=== PATIENT | male | born 1995 | race Caucasian/White ===

== ENCOUNTER 2017-03-20 09:54 | Emergency (ER) | payer SELFPAY ==
[~2017-03-20] VITALS: Ht 177.8 cm; Wt 73.0 kg
[2017-03-20] MEDS ORDERED: ONDANSETRON HCL 4MG/2ML VIAL IV STA (10:37)
[2017-03-20] MEDS ORDERED: MORPHINE SULFATE 4 MG/ML CPJ (NOT FOR IM USE) IV STA (10:37)
[2017-03-20] MEDS ORDERED: SODIUM CHLORIDE 0.9% 1,000 ML IV ONE (10:37)
[2017-03-20] MEDS ORDERED: CLONIDINE 0.2MG TABLET PO ONE (10:45)
[2017-03-20 10:58] LABS: BASOPHILS % 0.2 % (0.0-2.0); EOSINOPHILS % 0.4 % (0.0-5.0); HEMATOCRIT. 40.9 % (42.0-52.0); HEMOGLOBIN. 13.7 g/dL (14.0-18.0); LYMPHOCYTES % 13.8 % (20.0-50.0); MEAN CORPUSCULAR HEMOGLOBIN 28.5 pg (28.0-32.0); MEAN CORPUSCULAR VOLUME 85.1 fL (80.0-94.0); MEAN PLATELET VOLUME 9.5 fl (7.4-10.4); MONOCYTES % 5.5 % (2.0-8.0); NEUTROPHILS % 80.1 % (40.0-76.0); PLATELET 221 x1000/uL (130-400); RED CELL DISTRIBUTION WIDTH 13.1 % (11.6-14.6)
[2017-03-20 11:05] LABS: INR 1.1
[2017-03-20 11:06] LABS: CLARITY URINE CLEAR (CLEAR); COLOR URINE YELLOW (YELLOW); GLUCOSE URINE NEGATIVE (NEGATIVE); KETONES URINE NEGATIVE (NEGATIVE); LEUKOCYTE ESTERASE URINE NEGATIVE (NEGATIVE); NITRITE URINE NEGATIVE (NEGATIVE); OCCULT BLOOD URINE 1+ (NEGATIVE); PROTEIN URINE NEGATIVE (NEGATIVE); SPECIFIC GRAVITY URINE 1.023 (1.005-1.030)
[2017-03-20 11:22] LABS: CHLORIDE 108 mEq/L (98-107)
[2017-03-20 11:30] LABS: CARBON DIOXIDE 24 mEq/L (21-32); ETHANOL BLOOD < 10 mg/dL
[2017-03-20 11:31] LABS: CREATINE KINASE 172 IU/L (39-308); TROPONIN I < 0.02 ng/mL (0.00-0.04)
[2017-03-20 11:31] LABS: *AMPHETAMINES SCREEN URINE NEGATIVE (NEGATIVE); *BARBITURATES SCREEN URINE NEGATIVE (NEGATIVE); *BENZODIAZEPINES SCREEN URINE NEGATIVE (NEGATIVE); *COCAINE SCREEN URINE NEGATIVE (NEGATIVE); CANNABINOID URINE SCREEN PRESUMTIVE POSITIVE (NEGATIVE); METHADONE URINE SCREEN NEGATIVE (NEGATIVE); OPIATES URINE SCREEN PRESUMTIVE POSITIVE (NEGATIVE); PHENCYCLIDINE URINE SCREEN NEGATIVE (NEGATIVE)
[2017-03-20] MEDS ORDERED: KETOROLAC 30MG/ML VIAL IV ONE (12:30)
[2017-03-20 12:45] VITALS: BP 169/63
== END 2017-03-20 12:56 | disposition home or self-care (01) ==
LOC: ER 10:36
DX: R51 Headache (principal); I10 Essential (primary) hypertension; R11.2 Nausea with vomiting, unspecified; F12.10 Cannabis abuse, uncomplicated; F17.200 Nicotine dependence, unspecified, uncomplicated; G43.909 Migraine, unspecified, not intractable, without status migrainosus; Z91.14 Patient's other noncompliance with medication regimen
CPT/HCPCS: 36415; 70450; 80053; 80305; 81001; 82550; 83880; 84443; 84484; 85025; 85610; 85651; 93005; 96361; 96374; 96375; 99285; G0482; J1885; J2270; J2405; J7030; Z7610